=== PATIENT | male | born 2000 | race Caucasian/White ===

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

== ENCOUNTER 2020-04-05 20:33 | Emergency (ER) | payer BC, OTHER ==
--- NOTE | 2020-04-05 20:59 | ED ---
General Adult HPI - General Source: patient, RN notes reviewed Mode of arrival: ambulatory Limitations: no limitations <Kar Tay - Last Filed: 04/05/20 21:48> <Jenna Bowman - Last Filed: 04/06/20 16:09> - General Chief complaint: Syncope Stated complaint: syncope Time Seen by Provider: 04/05/20 20:41 - History of Present Illness Initial comments: 20 -year-old male with a past medical history of SVT with ablation presents to the emergency room for a chief complaint of syncope. Patient reports he was at baseball when he saw another player break his arm. Patient states that he started to get lightheaded and flushed and passed out a minute later. Patient reports he still feels a little shaky and clammy but otherwise feels well. He did not hit his head. He does not have a headache. Patient reports that this does not feel like an episode of SVT and he has not had any problems since his ablation. Patient has no other complaints at this time including shortness of breath, chest pain, abdominal pain, nausea or vomiting, headache, or visual changes. (Kar Tay) - Related Data Allergies Allergy/AdvReac Type Severity Reaction Status Date / Time No Known Allergies Allergy Verified 04/05/20 20:40 Review of Systems ROS Other: All systems not noted in ROS Statement are negative. <Kar Tay - Last Filed: 04/05/20 21:48> ROS Other: All systems not noted in ROS Statement are negative. <Jenna Bowman - Last Filed: 04/06/20 16:09> ROS Statement: Those systems with pertinent positive or pertinent negative responses have been documented in the HPI. Past Medical History Additional Past Medical History / Comment(s): SVT Additional Past Surgical History / Comment(s): ablation for SVT Past Psychological History: No Psychological Hx Reported Smoking Status: Current every day smoker Past Alcohol Use History: None Reported Past Drug Use History: Marijuana <Kar Tay - Last Filed: 04/05/20 21:48> General Exam Limitations: no limitations General appearance: alert, in no apparent distress Head exam: Present: atraumatic, normocephalic, normal inspection Eye exam: Present: normal appearance, PERRL, EOMI. Absent: scleral icterus, conjunctival injection, periorbital swelling ENT exam: Present: normal exam, mucous membranes moist Neck exam: Present: normal inspection. Absent: tenderness, meningismus, lymphadenopathy Respiratory exam: Present: normal lung sounds bilaterally. Absent: respiratory distress, wheezes, rales, rhonchi, stridor Cardiovascular Exam: Present: regular rate, normal rhythm, normal heart sounds. Absent: systolic murmur, diastolic murmur, rubs, gallop, clicks GI/Abdominal exam: Present: soft, normal bowel sounds. Absent: distended, tenderness, guarding, rebound, rigid Neurological exam: Present: alert, oriented X3, other (GCS 15) <Kar Tay - Last Filed: 04/05/20 21:48> Course Vital Signs 04/05/20 04/05/20 20:36 22:02 Temperature 97.6 F 97.9 F Pulse Rate 57 L 83 Respiratory 18 16 Rate Blood Pressure 112/76 120/84 O2 Sat by Pulse 100 100 Oximetry EKG Findings - EKG Comments: EKG Findings:: Normal sinus rhythm, ventricular rate 60, NH interval 134, QTC 416. EKG was reviewed by Dr. Bowman <Kar Tay - Last Filed: 04/05/20 21:48> Medical Decision Making <Kar Tay - Last Filed: 04/05/20 21:48> <Jenna Bowman - Last Filed: 04/06/20 16:09> - Medical Decision Making Patient presents for syncope after witnessing a broken arm on another player. Patient had a syncopal episode after starting to feel lightheaded and clammy after he saw the broken arm. Syncope was not exertional. Patient is feeling better at this time. EKG was unremarkable showing a normal sinus rhythm with a ventricular rate of 60. Blood glucose is 123. At this time I recommend that he follows up with primary care and return here for any worsening symptoms. (Kar Tay) I was available for consultation in the emergency department. The history and physical exam were done by the midlevel provider. I was consulted for this patients care. I reviewed the case with the midlevel provider and based on their presentation of the patient, I agree with the assessment, medical decision making and plan of care as documented. Chart was dictated using S[employer]beat dictation software. Attempts were made to correct any dictation errors however some typographical errors may persist. Patient was seen during a national state of emergency due to the Covid-19 pandemic. (Jenna Bowman) - Lab Data Lab Results 04/05/20 Range/Units 21:09 POC Glucose (mg/dL) 123 H (75-99) mg/dL POC Glu Nib Inspector ID Maricel Nance Disposition Is patient prescribed a controlled substance at d/c from ED?: No Time of Disposition: 21:48 <Kar Tay - Last Filed: 04/05/20 21:48> <Jenna Bowman - Last Filed: 04/06/20 16:09> Clinical Impression: Vasovagal syncope Disposition: HOME SELF-CARE Condition: Good Instructions (If sedation given, give patient instructions): Syncope (ED) Additional Instructions: Please drink plenty of fluids. Follow-up with primary care in 1-2 days. If you have worsening symptoms over the week then return to the emergency room. Referrals: Magno Montemayor MD [Primary Care Provider] - 1-2 days
[2020-04-05 21:10] LABS: Glucose,Whole Blood 123 mg/dL (75-99)
[2020-04-05 22:07] VITALS: BP 120/84; PULSE 83; RESP 16; TEMP 97.9
== END 2020-04-05 22:07 | disposition home or self-care (01) ==
LOC: EC 20:33
DX: R55 Syncope and collapse (principal); R42 Dizziness and giddiness; F17.200 Nicotine dependence, unspecified, uncomplicated; Z86.79 Personal history of other diseases of the circulatory system; Z98.890 Other specified postprocedural states
CPT/HCPCS: 36415; 93005; 99284

== ENCOUNTER 2021-06-04 21:48 | Emergency (ER) | payer OTHER ==
[2021-06-04 21:55] VITALS: BP 136/86; PULSE 80; RESP 20; TEMP 97.9
--- NOTE | 2021-06-04 22:24 | ED ---
General Adult HPI - General Chief complaint: Anxiety Stated complaint: Anxiety Time Seen by Provider: 06/04/21 22:10 Source: patient, family, RN notes reviewed, old records reviewed Mode of arrival: ambulatory Limitations: no limitations - History of Present Illness Initial comments: 21-year-old male patient, alert and oriented 4, presents to the emergency room with a family member complaining of increased anxiety. Patient states that he seen his PCP Dr Phillips for lumps on his testicles. He is scheduled to have an ultrasound done on June 14 and was having increased anxiety about it. He has not been able to eat very much he's been having panic attacks. He did call the office today and they told him to come to the emergency room for the ul trasound. Patient denies any pain at this time he denies any fevers, nausea vomiting or diarrhea. He does not take any medication on a daily basis. He does smoke marijuana occasionally and he has stopped vaping. -: month(s) Location: genitals (Bilateral) Consistency: constant Associated Symptoms: other (anxiety) Treatments Prior to Arrival: none - Related Data Home Medications Medication Instructions Recorded Confirmed No Known Home Medications 06/04/21 06/04/21 Allergies Allergy/AdvReac Type Severity Reaction Status Date / Time ragweed pollen Allergy Dyspnea Verified 06/04/21 22:41 DUST MITES Allergy Dyspnea Uncoded 06/04/21 22:41 Review of Systems ROS Statement: Those systems with pertinent positive or pertinent negative responses have been documented in the HPI. ROS Other: All systems not noted in ROS Statement are negative. Past Medical History Additional Past Medical History / Comment(s): SVT History of Any Multi-Drug Resistant Organisms: None Reported Additional Past Surgical History / Comment(s): ablation for SVT Past Psychological History: No Psychological Hx Reported Smoking Status: Current every day smoker Past Alcohol Use History: None Reported Past Drug Use History: Marijuana General Exam Limitations: no limitations General appearance: alert, in no apparent distress Head exam: Present: atraumatic, normocephalic, normal inspection Eye exam: Present: normal appearance, PERRL, EOMI. Absent: scleral icterus, conjunctival injection, periorbital swelling Pupils: Present: normal accommodation ENT exam: Present: normal exam, normal oropharynx, mucous membranes moist Neck exam: Present: normal inspection, full ROM. Absent: tenderness, meningismus, lymphadenopathy, thyromegaly Respiratory exam: Present: normal lung sounds bilaterally. Absent: respiratory distress, wheezes, rales, rhonchi, stridor Cardiovascular Exam: Present: regular rate, normal rhythm, normal heart sounds. Absent: systolic murmur, diastolic murmur, rubs, gallop, clicks GI/Abdominal exam: Present: soft, normal bowel sounds. Absent: distended, tenderness, guarding, rebound, rigid Extremities exam: Present: normal inspection, full ROM, normal capillary refill. Absent: tenderness, pedal edema, joint swelling, calf tenderness Back exam: Present: normal inspection, full ROM. Absent: tenderness, CVA tenderness (R), CVA tenderness (L), rash noted Neurological exam: Present: alert, oriented X3, CN II-XII intact, normal gait Psychiatric exam: Present: anxious Skin exam: Present: warm, dry, intact, normal color. Absent: rash Course Vital Signs 06/04/21 21:49 Temperature 97.9 F Pulse Rate 80 Respiratory 20 Rate Blood Pressure 136/86 O2 Sat by Pulse 95 Oximetry Medical Decision Making - Medical Decision Making Patient states that he seen his primary care doctor for evaluation of lumps on his testicles. His primary care doctor ordered him to have an ultrasound on June 13. He states that he is been having panic attacks having to wait for the test He presents to the emergency room with his mother asking for an ultrasound to be done now. He denies any pain at this time. Ultrasound of the scrotum shows a small left-sided epididymal cyst. There is no evidence of torsion or mass and there is no free fluid noted. There is no presence of hydrocele. There are prominent vessels seen on the right measuring 0.30 cm in prominent vessels seen on the left measuring 0.34 cm. be discharged home to follow up with his primary care doctor. He was directed to use scrotal support or tighter fitting underwear. Case discussed with Dr Caldera. Disposition Clinical Impression: Bilateral varicoceles, Anxiety about health Disposition: HOME SELF-CARE Condition: Good Instructions (If sedation given, give patient instructions): Varicocele (ED) Additional Instructions: Follow-up with the primary care doctor next week. Wear tighter fitting underwear to give yourrself scrotal support. Is patient prescribed a controlled substance at d/c from ED?: No Referrals: Magno Montemayor MD [Primary Care Provider] - 1-2 days Time of Disposition: 00:06
--- NOTE | 2021-06-04 23:55 | US ---
EXAMINATION TYPE: US scrotum with doppler. Grayscale and color Doppler Duplex imaging performed of hortencia enamorado scrotum. DATE OF EXAM: 06/04/2021 COMPARISON: NONE CLINICAL HISTORY: mass. Mass per order. Bilateral testicular pain. EXAM MEASUREMENTS: TESTICLES: Right Testicle: 4.8 x 2.7 x 2.4 cm Left Testicle: 4.4 x 2.9 x 2.4 cm EPIDIDYMIS HEAD: Right Epididymis: 0.8 x 0.8 x 1.4 cm Left Epididymis: 0.5 x 0.9 x 1.3 cm -Anechoic area seen within the left epididymal head: 0.4 x 0.5 x 0.9 cm. Doppler performed to assess for testicular vascularity; bilateral color flow and waveforms are seen. Presence of hydroceles: No Presence of varicoceles: Prominent vessels seen on the right: 0.30 cm. Prominent vessels seen on the left: 0.34 cm. IMPRESSION: Small left side epididymal cyst. No testicular torsion or mass. No free fluid.
== END 2021-06-05 00:19 | disposition home or self-care (01) ==
LOC: EC 21:48
DX: F41.9 Anxiety disorder, unspecified (principal); I86.1 Scrotal varices; N50.3 Cyst of epididymis; F17.200 Nicotine dependence, unspecified, uncomplicated; F12.90 Cannabis use, unspecified, uncomplicated
CPT/HCPCS: 76870; 93975; 99283

== ENCOUNTER → 2021-08-26 | Outpatient (CLI) | payer OTHER | END | disposition home or self-care (01) | LOC: LABWHC1 08:52 | PROVIDERS: ATTEND Otolaryngology | DX: J30.89 Other allergic rhinitis (principal) | CPT/HCPCS: 36415 ==

== ENCOUNTER → 2022-11-25 | Outpatient (CLI) | payer OTHER ==
[2022-11-26 02:06] LABS: Basophils # (A) 0.08 X 10*3/uL (0.00-0.10); Basophils % (A) 0.8 %; Eosinophils # (A) 0.24 X 10*3/uL (0.04-0.35); Eosinophils % (A) 2.4 %; HCT 46.1 % (39.6-50.0); Immature Grans, Automated 0.4 %; Lymphocytes # (A) 2.32 X 10*3/uL (0.90-5.00); Lymphocytes % (A) 23.2 %; MCH 32.6 pg (27.0-32.0); MCHC 34.7 g/dL (32.0-37.0); MCV 93.9 fL (80.0-97.0); Monocytes # (A) 0.95 X 10*3/uL (0.20-1.00); Monocytes % (A) 9.5 %; NRBC Per 100 WBC 0 /100 WBCS (0.0-0.0); Neutrophils # (A) 6.36 X 10*3/uL (1.80-7.70); Neutrophils % (A) 63.7 %; Platelet Count 335 X 10*3/uL (140-440); RBC 4.91 X 10*6/uL (4.40-5.60); RDW 12.1 % (11.5-14.5); WBC 9.99 X 10*3/uL (4.50-10.00)
== END | disposition home or self-care (01) ==
LOC: LABWHC1 16:24
PROVIDERS: ATTEND Surgery
DX: Z01.812 Encounter for preprocedural laboratory examination (principal); K40.90 Unilateral inguinal hernia, without obstruction or gangrene, not specified as recurrent
CPT/HCPCS: 36415; 85025; 86850; 86900; 86901

== ENCOUNTER 2022-12-24 07:43 | Day surgery (SDC) | payer OTHER ==
[~2022-12-24 07:43] MED LIST: ACETAMINOPHEN TAB 500 MG TAB PO PRN; HEPARIN SODIUM,PORCINE/PF 5,000 UNIT/0.5 ML SYRINGE SQ PRN
[2022-12-24] MEDS ORDERED: LACTATED RINGERS 1,000 ML IV SCH (08:23)
[2022-12-24] MEDS ORDERED: ONDANSETRON 4 MG/2 ML VIAL IVP ONE (08:23)
[2022-12-24] MEDS ORDERED: HYDROmorphone 0.5 MG/0.5 ML SYRINGE IVP PRN (08:23)
[2022-12-24] MEDS ORDERED: DEXAMETHASONE SOD PHOSPHATE 4 MG/ML 1 ML VIAL IV ONE (08:23)
[2022-12-24] MEDS ORDERED: LIDOCAINE 1% (10MG/ML) FOR IV START INTRADERMA ONE (08:45)
[2022-12-24 08:50] LABS: Glucose,Whole Blood 99 mg/dL (70-110)
[2022-12-24] MEDS ORDERED: MIDAZOLAM 2 MG/2 ML VIAL IV ONE (09:01)
[2022-12-24] MEDS ORDERED: SCOPOLAMINE 1 MG/72 HR PATCH TRANSDERM ONE (09:29)
[2022-12-24] MEDS ORDERED: BUPIVACAINE (PF) 0.5% 30 ML VIAL SQ ONE ×2 (10:55→11:28)
[2022-12-24] MEDS ORDERED: LIDOCAINE 2% INJ 20 MG/ML (2 ML VIAL) ONE (11:05)
[2022-12-24] MEDS ORDERED: MIDAZOLAM 2 MG/2 ML VIAL ONE (11:05)
[2022-12-24] MEDS ORDERED: ESMOLOL 100 MG/10 ML VIAL ONE (11:05)
[2022-12-24] MEDS ORDERED: ROCURONIUM 10 MG/ML (5 ML VIAL) IV ONE (11:05)
[2022-12-24] MEDS ORDERED: GLYCOPYRROLATE 0.2 MG/ML 2 ML VIAL ONE (11:05)
[2022-12-24] MEDS ORDERED: SUCCINYLCHOLINE CHLORIDE 200 MG/10 ML VIAL IV ONE (11:05)
[2022-12-24] MEDS ORDERED: fentaNYL (PF) 50 MCG/ML 2 ML AMP ONE (11:05)
[2022-12-24] MEDS ORDERED: KETAMINE 10 MG/ML 20 ML VIAL ONE (11:05)
[2022-12-24] MEDS ORDERED: KETOROLAC 15 MG/ML 1 ML VIAL ONE (11:05)
[2022-12-24] MEDS ORDERED: NEOSTIGMINE 1 MG/ML 10 ML VIAL ONE (11:05)
[2022-12-24] MEDS ORDERED: DEXAMETHASONE SOD PHOSPHATE 4 MG/ML 1 ML VIAL ONE (11:05)
[2022-12-24] MEDS ORDERED: ROPIVACAINE 5 MG/ML 30 ML VIAL ONE (11:05)
[2022-12-24] MEDS ORDERED: PROPOFOL 10 MG/ML 20 ML VIAL IV ONE (11:05)
--- NOTE | 2022-12-24 11:52 | P.OP ---
Date of Procedure: 12/24/22 Preoperative Diagnosis: Right inguinal hernia Postoperative Diagnosis: Right inguinal hernia Procedure(s) Performed: Laparoscopic robotic-assisted repair of right inguinal hernia Excision of cord lipoma Transversus abdominis plane block Anesthesia: CRISTIAN Surgeon: Suman Dodson Estimated Blood Loss (ml): 5 Pathology: other (Cord lipoma) Condition: stable Disposition: PACU Description of Procedure: The patient's placed on the operating table in the supine position. The patient received general anesthesia. The patient's abdomen was prepped and draped in usual sterile fashion. The skin was anesthetized 1% local Xylocaine at the incision sites. Using an 11 blade a skin incision was made at the umbilicus. The fascia was grasped with a [place] and then the peritoneal cavity was entered with the Veress needle. Position of the Veress needle was confirmed with a pos itive drop test. After adequate insufflation a 5 mm trocar was placed into the peritoneal cavity. The Laparoscope was placed the peritoneal cavity. And a robotic 8 mm trocar was placed in the right lateral position and then another 8 mm robotic trochars placed in the left lateral position. The original 5 mm trocar was exchanged for a 8 mm trocar. A four-quadrant transversus abdominis plane block was then performed using 1% local Xylocaine. The patient was placed in reverse Trendelenburg and then the patient was docked to the robot. Next the peritoneum over top of the hernia was incised and then using blunt and sharp dissection and electrocautery the hernia sac was dissected free from the floor of the inguinal canal. The hernia sac was completely reduced into the peritoneal cavity. The cord lipoma was dissected free and sent to pathology. And then using the Pro finisher hot strip mesh the hernia was repaired. The peritoneum was then sutured with 20V lock suture. The patient was then undocked the robot. The needle was withdrawn from the peritoneal cavity. The umbilical trocar site was closed with 0 Ethibond suture. The skin was closed interrupted 3-0 Monocryl suture. Dermabond dressing was applied. Patient was sent to recovery in stable condition.
[2022-12-24 12:10] VITALS: TEMP 97
[2022-12-24 13:02] VITALS: RESP 18
[2022-12-24 13:49] VITALS: BP 123/89; PULSE 87
--- NOTE | 2022-12-26 06:22 | P.ANPRN ---
Procedure Note - Anesthesia - Nerve Block Performed Bilateral Transversus Abdominis Single Time Out Performed: Yes Date of Procedure: 12/24/22 Procedure Start Time: :00 Procedure Stop Time: :07 Location of Patient: PreOp Indication: Acute Post-Operative Pain, Requested by Surgeon Sedation Type: Sedate with meaningful contact maintained Preparation: Sterile Prep Position: Supine Needle Types: Pajunk Needle Gauge: 21 Ultrasound used to visualize needle placement: Yes Ultrasound used to observe medication spread: Yes Resistance on Injection: Normal Image Stored and Saved: Yes Events: Uneventful and Well Tolerated (ropi .5% 20cc plus dexamethasone 4mg given bilaterally)
== END 2022-12-24 14:02 | disposition home or self-care (01) ==
LOC: OR 07:43
PROVIDERS: ATTEND Surgery
DX: K40.90 Unilateral inguinal hernia, without obstruction or gangrene, not specified as recurrent (principal); I47.1 Supraventricular tachycardia
CPT/HCPCS: 64488; 86900; 86901; 86850; 49650; C1781; J2250; J0330; J1100; J2710; J0690; J2405; J3010; J2795; J1885; J2704; J1644; J2001; 88304

== ENCOUNTER → 2023-08-26 | Outpatient (CLI) | payer OTHER ==
--- NOTE | 2023-08-26 16:38 | US ---
EXAMINATION TYPE: US groin RT DATE OF EXAM: 08/26/2023 COMPARISON: NONE CLINICAL INDICATION: Male, 23 years old with history of K40.90 INGUINAL HERNIA; rt groin pain had a h ernia repair 11/2022 TECHNIQUE: Multiple sonographic images of the right inguinal region at the area of concern. FINDINGS AND IMPRESSION: Eclectic Doctor notes: Scanned right groin area; no abnormalities seen.
== END | disposition home or self-care (01) ==
LOC: RADUSWWP 14:23
PROVIDERS: ATTEND Internal Medicine Geriatric Medicine
DX: K40.90 Unilateral inguinal hernia, without obstruction or gangrene, not specified as recurrent (principal); Z98.890 Other specified postprocedural states

== ENCOUNTER → 2024-07-14 | Outpatient (CLI) | payer OTHER ==
--- NOTE | 2024-07-14 11:04 | CT ---
EXAMINATION TYPE: CT pelvis wo con DATE OF EXAM: 07/14/2024 COMPARISON: None CLINICAL INDICATION: Male, 24 years old with history of R19.00 INTRA-ABD AND PELVIC SWELLING, MASS A ND RUCHI; PHH, TESTICULAR SWELLING, HX VARICOCELE, HERNIA REPAIR RT SIDE. CT DLP: 301 mGycm Automated exposure control for dose reduction was used. FINDINGS: Visualized bowel loops are normal and there is no inflammation or obstruction. There is no free intra peritoneal fluid or air. There is no pelvic adenopathy or mass. Urinary bladder, prostate gland and rectum are normal. No focal osseous lesions are seen. The soft tissues are unremarkable. There is no hernia. IMPRESSION: No significant abnormality seen. [facility], , 07/14/2024 11:02 AM
== END | disposition home or self-care (01) ==
LOC: RADCTMAIN 08:36
PROVIDERS: ATTEND Surgery Plastic and Reconstructive Surgery
DX: I86.1 Scrotal varices (principal); R19.00 Intra-abdominal and pelvic swelling, mass and lump, unspecified site
CPT/HCPCS: 72192